=== PATIENT | male | born 1950 | race American Indian/Alaskan Native ===

== ENCOUNTER 2021-11-02 10:26 | Emergency (ER) | payer SELFPAY ==
--- NOTE | 2021-11-02 10:33 | Emergency Department Report ---
ED CPR HPI - General Chief Complaint: Cardiac Arrest/CPR Stated Complaint: CARDIAC ARREST Time Seen by Provider: 11/02/21 10:32 Source: EMS (Verbal report received from emergency medical services. EMS documentation not available at time of chart dictation ), RN notes reviewed Mode of arrival: Stretcher Limitations: Altered Mental Status, Physical Limitation - History of Present Illness Initial Comments: The patient was evaluated in the emergency department for symptoms described in the history of present illness. He/she was evaluated in the context of the global COVID-19 pandemic, which necessitated consideration that the patient might be at risk for infection with the virus that causes COVID-19. Institutional protocols and algorithms that pertain to the evaluation of patients at risk for COVID-19 are in a state of rapid change based on information released by regulatory bodies including the CDC and federal and state organizations. These policies and algorithms were followed during the patient's care in the emergency department. Please note that these policies, procedures and recommendations changed on a rapid basis. The patient is a 71-year-old gentleman, who is not known to myself previously, who was brought to the hospital by emergency medical services as an out of hospital cardiac arrest. Patient arrives receiving CPR, and hts-dtoli-auzf ventilation with a GCS of 3. His last known well time is sometime earlier on this morning. EMS indicates that [facility] did not initiate CPR. EMS reports the patient does not have a shockable rhythm, and they have been unable to obtain IV and/or IO access in the field. They report that they have been resuscitating this patient with CPR and sln-yllar-cawa ventilation for appr oximately 20 minutes. Upon arrival to this emergency room, patient has a GCS of 3, pupils are midpoint and do not react to light, he is not breathing spontaneously, he is pulseless, and does not have a shockable rhythm. Initial rhythm is pulseless electrical activity. Patient received high-quality CPR. Lower extremity IO access is established by myself, and patient received standard ACLS medications. Unfortunately, pulses could not be obtained, and patient remains in pulseless electrical activity. Therefore, resuscitative efforts were terminated. His sister is subsequently informed. Complaint: unknown Place: NH/SNF Initial Findings in the Field: unresponsive, no pulse Treatments Prior to Arrival: BMV, chest compressions ED Review of Systems ROS: Stated complaint: CARDIAC ARREST Other details as noted in HPI Comment: Unobtainable due to pts medical conditions ED Physical Exam - General Limitations: Altered Mental Status, Physical Limitation General appearance: obtunded, other (GCS of 3. Multiple contractures) - Head Head exam: Present: atraumatic, normocephalic - Eye Eye exam: Present: normal appearance, other (Pupils midpoint and do not react to light) - ENT ENT exam: Present: normal orophraynx, mucous membranes dry - Neck Neck exam: Absent: normal inspection (Surgical scar noted on anterior neck) - Respiratory Respiratory exam: Absent: normal lung sounds bilaterally (The patient is not breathing) - Cardiovascular Cardiovascular Exam: Present: other (The patient is pulseless). Absent: systolic murmur, diastolic murmur, rubs, gallop - GI/Abdominal GI/Abdominal exam: Present: soft, other (Feeding tube is noted) - Rectal Rectal exam: Present: normal inspection - exam: Present: normal inspection External exam: Present: normal external exam - Extremities Exam Extremities exam: Absent: normal inspection (Contractures noted in the bilateral lower extremity) - Back Exam Back exam: Present: normal inspection - Neurological Exam Neurological exam: Present: altered (GCS of 3) - Psychiatric Psychiatric exam: Present: other (The patient is nonverbal) - Skin Skin exam: Present: warm - IO Right Tibia Consent Obtained: emergent situation Time Out Performed: No IO Instrument Used to Penetrate the Cortex: standard IO needle Patient Tolerated Procedure: well Complications: none Additional Comments: The right proximal tibia is identified. It is cleansed in typical aseptic technique. A 15 mm 15-gauge IO needle is inserted into the proximal tibia. Bone marrow contents are aspirated, and the line flushes easily. The IO line is then secured. The patient tolerated the procedure well. There were no obvious complications Critical care attestation.: If time is entered above; I have spent that time in minutes in the direct care of this critically ill patient, excluding procedure time. ED Disposition Clinical Impression: Cardiac arrest Disposition: 20 Is pt being admited?: No Does the pt Need Aspirin: No Condition: Undetermined
[2021-11-02] MEDS ORDERED: SODIUM BICARB 8.4% 50 MEQ/50 ML SYRINGE IV ONE (15:43)
[2021-11-02] MEDS ORDERED: EPINEPHrine 1 MG/10 ML SYRINGE ONE (15:43)
== END 2021-11-02 11:00 ==
LOC: ED 10:26
DX: I46.9 Cardiac arrest, cause unspecified (principal)
CPT/HCPCS: 36680; 92950; 99285; J0171; J3490